=== PATIENT | male | born 1970 | race Caucasian/White ===

== ENCOUNTER 2018-11-01 09:08 | Emergency (ER) | payer BC ==
[~2018-11-01] VITALS: Ht 180.3 cm; Wt 104.3 kg
[2018-11-01] MEDS ORDERED: Norco 5-325 Ta1 EACH PO (10:20)
[2018-11-01] MEDS ORDERED: Crutch1 EACH MISC (10:22)
[2018-11-03] MEDS ORDERED: ZYRTEC PO (14:34)
[2018-11-03] MEDS ORDERED: ACID REDUCER PO (14:34)
== END 2018-11-01 11:02 | disposition home or self-care (01) ==
LOC: ER 09:08
DX: S06.0X9A Concussion with loss of consciousness of unspecified duration, initial encounter (principal); S82.51XA Displaced fracture of medial malleolus of right tibia, initial encounter for closed fracture; S82.101A Unspecified fracture of upper end of right tibia, initial encounter for closed fracture; Z87.891 Personal history of nicotine dependence; Y04.2XXA Assault by strike against or bumped into by another person, initial encounter
CPT/HCPCS: 29505; 70450; 73590; 73610; 99284-25

== ENCOUNTER 2018-11-04 11:13 | Day surgery (SDC) | payer BC ==
[~2018-11-04] VITALS: Ht 177.8 cm; Wt 108.4 kg
[~2018-11-04 11:13] MED LIST: ACID REDUCER PO; Crutch1 EACH MISC; Norco 5-325 Ta1 EACH PO; ZYRTEC PO
--- NOTE | 2018-11-04 11:52 | NUR ---
ADMITTED TO UNIT. CAME INTO UNIT WITH CRUTCHES AND IN WHEELCHAIR. Surgical site prepped with 2% Chlorhexidine cloth wipe. History, Chart, Medications and Allergies reviewed before start of procedure.Lungs clear T/O to Auscultation. Patient confirms NPO status and agrees with scheduled surgery.
[2018-11-04] MEDS ORDERED: OMEPRAZOLE20 MG PO (11:55)
--- NOTE | 2018-11-04 14:38 | NUR ---
STARTED PATIENT ON PAIN RX CONTINUE TO MONITOR GIVEN PUDDING AND WATER WELL ICE CHIPS
--- NOTE | 2018-11-04 14:59 | NUR ---
Discharge instructions reviewed with patient. Patient verbalizes understanding. Copy given to patient to take home. Patient States Post-Procedure ride home has been arranged. Discharged via wheelchair to private car for ride home.
== END 2018-11-04 22:53 | disposition home or self-care (01) ==
LOC: ORSCMMR 11:13
PROVIDERS: Orthopaedic Surgery
PROC: 0SSF04Z Reposition Right Ankle Joint with Internal Fixation Device, Open Approach (ICD-10-PCS; principal; 2018-11-04 12:30)
DX: S82.861A Displaced Maisonneuve's fracture of right leg, initial encounter for closed fracture (principal); E11.9 Type 2 diabetes mellitus without complications; K21.9 Gastro-esophageal reflux disease without esophagitis; Z79.899 Other long term (current) drug therapy
CPT/HCPCS: A9270-GY; C1713; J0690; J1100; J1885; J2250; J2405; J2704; J3010; J7120

== ENCOUNTER 2019-06-15 06:47 | Day surgery (SDC) | payer BC ==
[~2019-06-15] VITALS: Ht 182.9 cm; Wt 109.9 kg
[~2019-06-15 06:47] MED LIST changes: +NAPR500 PO; +OMEPRAZOLE20 MG PO
--- NOTE | 2019-06-15 07:24 | NUR ---
06/15/19 0724 Nai Oquendo 1 POKE RIGHT HAND VALVE 2 POKE UPPER ARM GOOD RIGHT
== END 2019-06-15 09:50 | disposition home or self-care (01) ==
LOC: ORSCSDS 06:47
PROVIDERS: Student in an Organized Health Care Education/Training Program
PROC: 0DBP8ZX Excision of Rectum, Via Natural or Artificial Opening Endoscopic, Diagnostic (ICD-10-PCS; principal; 2019-06-15 08:00)
PROC: 0DBN8ZX Excision of Sigmoid Colon, Via Natural or Artificial Opening Endoscopic, Diagnostic (ICD-10-PCS; principal; 2019-06-15 08:00)
PROC: 0DBK8ZX Excision of Ascending Colon, Via Natural or Artificial Opening Endoscopic, Diagnostic (ICD-10-PCS; principal; 2019-06-15 08:00)
PROC: 0DBM8ZX Excision of Descending Colon, Via Natural or Artificial Opening Endoscopic, Diagnostic (ICD-10-PCS; principal; 2019-06-15 08:00)
PROC: 0DBL8ZX Excision of Transverse Colon, Via Natural or Artificial Opening Endoscopic, Diagnostic (ICD-10-PCS; principal; 2019-06-15 08:00)
DX: Z12.11 Encounter for screening for malignant neoplasm of colon (principal); D12.2 Benign neoplasm of ascending colon; D12.3 Benign neoplasm of transverse colon; D12.8 Benign neoplasm of rectum; K63.5 Polyp of colon; K57.30 Diverticulosis of large intestine without perforation or abscess without bleeding; K64.8 Other hemorrhoids; K21.9 Gastro-esophageal reflux disease without esophagitis; Z87.891 Personal history of nicotine dependence; Z79.899 Other long term (current) drug therapy
CPT/HCPCS: 82947; 88305; J0330; J0461; J2405; J2704; J7040; J7120

== ENCOUNTER 2020-08-08 09:54 | Day surgery (SDC) | payer BC ==
[~2020-08-08] VITALS: Ht 182.9 cm; Wt 111.3 kg
[~2020-08-08 09:54] MED LIST changes: +LOSA25; +Pravachol40 MG
[2020-08-08] MEDS ORDERED: ACID REDUCER (10:27)
== END 2020-08-08 12:22 | disposition home or self-care (01) ==
LOC: ORSCSDS 09:54
PROVIDERS: Student in an Organized Health Care Education/Training Program
PROC: 0DBP8ZX Excision of Rectum, Via Natural or Artificial Opening Endoscopic, Diagnostic (ICD-10-PCS; principal; 2020-08-08 11:15)
PROC: 0DBH8ZX Excision of Cecum, Via Natural or Artificial Opening Endoscopic, Diagnostic (ICD-10-PCS; principal; 2020-08-08 11:15)
PROC: 0DBN8ZX Excision of Sigmoid Colon, Via Natural or Artificial Opening Endoscopic, Diagnostic (ICD-10-PCS; principal; 2020-08-08 11:15)
PROC: 0DBL8ZX Excision of Transverse Colon, Via Natural or Artificial Opening Endoscopic, Diagnostic (ICD-10-PCS; principal; 2020-08-08 11:15)
PROC: 0DBM8ZX Excision of Descending Colon, Via Natural or Artificial Opening Endoscopic, Diagnostic (ICD-10-PCS; principal; 2020-08-08 11:15)
DX: Z86.010 Personal history of colon polyps (principal); Z80.0 Family history of malignant neoplasm of digestive organs; D12.0 Benign neoplasm of cecum; D12.3 Benign neoplasm of transverse colon; D12.4 Benign neoplasm of descending colon; D12.5 Benign neoplasm of sigmoid colon; K62.1 Rectal polyp; K57.30 Diverticulosis of large intestine without perforation or abscess without bleeding; K64.8 Other hemorrhoids; I10 Essential (primary) hypertension; E11.9 Type 2 diabetes mellitus without complications; Z87.891 Personal history of nicotine dependence; K21.9 Gastro-esophageal reflux disease without esophagitis; E78.5 Hyperlipidemia, unspecified; Z79.899 Other long term (current) drug therapy
CPT/HCPCS: 82947; 88305; J2704; J7120

== ENCOUNTER 2021-07-14 07:27 | Emergency (ER) | payer BC ==
[~2021-07-14] VITALS: Ht 182.9 cm; Wt 111.1 kg
[~2021-07-14 07:27] MED LIST changes: +ACID REDUCER
[2021-07-14] MEDS ORDERED: MONT10T PO (07:43)
== END 2021-07-14 09:29 | disposition home or self-care (01) ==
LOC: ER 07:27
DX: J06.9 Acute upper respiratory infection, unspecified (principal); I10 Essential (primary) hypertension; Z79.899 Other long term (current) drug therapy
CPT/HCPCS: 71045; 99284-25

== ENCOUNTER 2021-08-01 07:54 | Day surgery (SDC) | payer BC ==
[~2021-08-01] VITALS: Ht 182.9 cm; Wt 106.8 kg
[~2021-08-01 07:54] MED LIST changes: +MONT10T PO
[2021-08-01 09:01] LABS: Influenza A, PCR NEGATIVE (NEGATIVE); Influenza B, PCR NEGATIVE (NEGATIVE); Resp Syncytial Virus, PCR NEGATIVE (NEGATIVE); SARS-Cov-2 (COVID-19) PCR, MMC NEGATIVE (NEGATIVE)
== END 2021-08-01 10:20 | disposition home or self-care (01) ==
LOC: ORSCSDS 07:54
PROVIDERS: Student in an Organized Health Care Education/Training Program
PROC: 0DBM8ZX Excision of Descending Colon, Via Natural or Artificial Opening Endoscopic, Diagnostic (ICD-10-PCS; principal; 2021-08-01 09:00)
PROC: 0DBH8ZX Excision of Cecum, Via Natural or Artificial Opening Endoscopic, Diagnostic (ICD-10-PCS; principal; 2021-08-01 09:00)
PROC: 0DBN8ZX Excision of Sigmoid Colon, Via Natural or Artificial Opening Endoscopic, Diagnostic (ICD-10-PCS; principal; 2021-08-01 09:00)
PROC: 0DBL8ZX Excision of Transverse Colon, Via Natural or Artificial Opening Endoscopic, Diagnostic (ICD-10-PCS; principal; 2021-08-01 09:00)
DX: Z86.010 Personal history of colon polyps (principal); D12.0 Benign neoplasm of cecum; D12.3 Benign neoplasm of transverse colon; D12.4 Benign neoplasm of descending colon; D12.5 Benign neoplasm of sigmoid colon; K57.30 Diverticulosis of large intestine without perforation or abscess without bleeding; K64.8 Other hemorrhoids; I10 Essential (primary) hypertension; Z87.891 Personal history of nicotine dependence; E78.5 Hyperlipidemia, unspecified; E11.9 Type 2 diabetes mellitus without complications; K21.9 Gastro-esophageal reflux disease without esophagitis; Z79.899 Other long term (current) drug therapy
CPT/HCPCS: 0241U; 82947; 88305; J0330; J0461; J2250; J2405; J2704; J7120

== ENCOUNTER → 2022-03-28 | Outpatient (CLI) | payer BC ==
[2022-03-28 11:07] LABS: CHOL/HDL RATIO 4.4; Cholesterol 171 mg/dL (50-200); HDL Cholesterol 39 mg/dL (>39); LDL/HDL RATIO 2.7; Low Density Lipoprotein Chol 105 mg/dL (0-110); Triglycerides 134 mg/dL (30-160); Very Low Density Lipoprot Chol 26 mg/dL (6-32)
== END ==
LOC: LAB SHORT 10:25 → LAB 10:25
PROVIDERS: Nurse Practitioner Family
DX: E78.2 Mixed hyperlipidemia (principal); R73.9 Hyperglycemia, unspecified
CPT/HCPCS: 80061; 83036

== ENCOUNTER 2022-08-31 06:39 | Day surgery (SDC) | payer BC ==
[~2022-08-31] VITALS: Ht 182.9 cm; Wt 110.1 kg
[2022-08-31] MEDS ORDERED: MONT10T PO (07:23)
[2022-08-31] MEDS ORDERED: THERA-D2000 UNIT PO (07:24)
[2022-08-31] MEDS ORDERED: FISH OIL 1,2001 EAC7 PO (07:24)
--- NOTE | 2022-08-31 09:04 | NUR ---
08/31/22 0904 ALEISHA MCNALLY 0.1MG OF EPI ADDED TO 20MLS OF ROPIVACAINE 0.5% TO CREATE A LOCAL SOLUTION OF ROPIVACAINE 0.5% WITH EPI 1:200,000. 10MLS OF LOCAL POURED ONTO STERILE FIELD FOR USE DURING CASE.
--- NOTE | 2022-08-31 10:29 | NUR ---
08/31/22 1029 OMID MILIAN IN FOR D/C INSTRUCTIONS. DEMONSTRATED POLAR PACK. PT DOING WELL AT DISCHARGE. PAIN WAS TOLERABLE ON DISCHARGE.
== END 2022-08-31 10:25 | disposition home or self-care (01) ==
LOC: ORSCSDS 06:39
PROVIDERS: Orthopaedic Surgery
PROC: 0SBC4ZZ Excision of Right Knee Joint, Percutaneous Endoscopic Approach (ICD-10-PCS; principal; 2022-08-31 08:00)
DX: S83.231A Complex tear of medial meniscus, current injury, right knee, initial encounter (principal); I10 Essential (primary) hypertension; E11.9 Type 2 diabetes mellitus without complications; Z87.891 Personal history of nicotine dependence; K21.9 Gastro-esophageal reflux disease without esophagitis; Z79.899 Other long term (current) drug therapy
CPT/HCPCS: 82947; A9270; J0690; J1100; J1885; J2405; J2704; J2795; J3010; J7120

== ENCOUNTER 2025-05-19 06:46 | Day surgery (SDC) | payer BC, OTHER ==
[2025-05-19] VITALS (9 sets, daily range): BP systolic 110–139; BP diastolic 69–82
[~2025-05-19] VITALS: Ht 177.8 cm; Wt 108.4 kg
[~2025-05-19 06:46] MED LIST changes: +AMLO5 PO; +FISH OIL 1,2001 EAC4 PO; +Flonase 0.05% N16 GM; +OMEP20ER PO; +PRAVASTATIN SOD40 MG PO; +THERA-D2000 UNIT PO
[2025-05-19] MEDS ORDERED: CeFAZolin Sodium 2,000 MG in NS 100 ML IV SCH (07:20)
[2025-05-19] MEDS ORDERED: CeFAZolin Sodium 2,000 MG VIAL ONE (08:11)
[2025-05-19] MEDS ORDERED: Bupivacaine 0.5% HCl 5 MG/ML 30MLVIAL ONE (09:19)
[2025-05-19] MEDS ORDERED: Midazolam HCl 1MG / ML 2ML Vial ONE (09:43)
[2025-05-19] MEDS ORDERED: Rocuronium Bromide 10 MG/ML 5ML Injection IV ONE ×2 (09:45→10:25)
[2025-05-19] MEDS ORDERED: Ondansetron HCl 2 MG / ML 2ML Vial ONE (09:57)
[2025-05-19] MEDS ORDERED: Dexamethasone Sod Phos 10 MG/ML 1ML VIAL ONE (09:57)
[2025-05-19] MEDS ORDERED: Ketorolac Tromethamine 30mg Vial ONE (09:57)
[2025-05-19] MEDS ORDERED: FentaNYL Citrate 50 MCG/ML 2 ML Injection ONE (10:04)
[2025-05-19] MEDS ORDERED: Sugammadex Sodium 200 MG/2ML SDV (100 MG/ML) ONE (10:12)
[2025-05-19] MEDS ORDERED: HYDROcodone 5-APAP 325 TAB PO PRN (11:40)
[2025-05-19] MEDS ORDERED: FentaNYL Citrate 50 MCG/ML 2 ML Injection IV PRN ×2 (12:40)
[2025-05-19] MEDS ORDERED: Dexamethasone Sodium Phosphate 4 MG/ML 5ML VIAL IV PRN (12:40)
[2025-05-19] MEDS ORDERED: Prochlorperazine Edisylate 10 mg Vial IV PRN (12:40)
--- NOTE | 2025-05-19 12:41 | NUR ---
TO STEP POST PROCEDURE. UMBILICAL HERNIA REPAIR WITH STERI-STRIP X 1 CDI. REPORTS MILD PAIN, NO NAUSEA, SOB. CHEY WATER. 1 NORCO GIVEN ORDERED. VERBALIZED UNDERSTANDING OF DC INSTRUCTIONS. ICE THERAPY PROVIDED. ABD BINDER ON FOR COMFORT. CHANGED AT BEDSIDE WITH STEADY GAIT. DC'D VIA WC TO PRIVATE CAR WITH DISCHARGING MACHINE OPERATOR, LUKE. VERBALIZED UNDERSTANDING OF DC INSTRUCTIONS, FOLLOW UP, MEDICATIONS, WOUND CARE
[2025-05-19] MEDS ORDERED: Ondansetron HCl 2 MG / ML 2ML Vial IV PRN (12:45)
[2025-05-19] MEDS ORDERED: HYDROmorphone HCl/Pf 1MG SYR IV PRN ×2 (12:45)
== END 2025-05-19 12:35 | disposition home or self-care (01) ==
LOC: ORSCMMR 06:46 → ORD 09:00 → ORSCMMR 09:00 → ORD 09:30 → ORSCMMR 12:35
PROVIDERS: Surgery
PROC: 0WUF0JZ Supplement Abdominal Wall with Synthetic Substitute, Open Approach (ICD-10-PCS; principal; 2025-05-19 09:00)
DX: K42.0 Umbilical hernia with obstruction, without gangrene (principal); I10 Essential (primary) hypertension; K21.9 Gastro-esophageal reflux disease without esophagitis; E11.9 Type 2 diabetes mellitus without complications; E66.9 Obesity, unspecified; Z68.34 Body mass index [BMI] 34.0-34.9, adult; Z79.899 Other long term (current) drug therapy
CPT/HCPCS: A9270; C1781; J0690; J1100; J1885; J2250; J2405; J2704; J3010; J7120